=== PATIENT | male | born 1970 | race Caucasian/White ===

== ENCOUNTER → 2021-09-26 | Day surgery (SDC) | payer OTHER ==
[~2021-09-26] VITALS: Ht 177.8 cm; Wt 83.9 kg
[~2021-09-26] MED LIST: ACETAMINOPHEN500 M1 PO; CENTRUM ADULTS1 EACH PO; COLACE100 MG PO; DICLOFENAC SODI75 MG PO; DICYCLOMINE HCL20 MG PO; LOSARTAN POTASS50 MG PO; LOVAZA1 GM PO; MOTRIN600 MG PO; OMEPRAZOLE40 MG PO; ONDANSETRON ODT4 MG SL; OXY-IR 5MG5 MG PO; PEPCID AC20 MG PO; TAMSULOSIN HCL0.4 MG PO; VITAMIN E90 M1 PO
[2021-09-26 07:52] LABS: BUN/CREAT RATIO (CALC) 15.5 RATIO; CREATININE 0.97 mg/dL (0.67-1.17); POTASSIUM 3.8 mmol/L (3.5-5.1)
== END | disposition home or self-care (01) ==
LOC: FAS 08-29 08:15
PROVIDERS: Anesthesiology
DX: K38.8 Other specified diseases of appendix (principal); K66.0 Peritoneal adhesions (postprocedural) (postinfection); K43.2 Incisional hernia without obstruction or gangrene; N40.0 Benign prostatic hyperplasia without lower urinary tract symptoms; K21.9 Gastro-esophageal reflux disease without esophagitis; I10 Essential (primary) hypertension
CPT/HCPCS: 36415; 80048; J0690; J1644; J1885; J2250; J2405; J2704; J2710; J3010; J7120